=== PATIENT | male | born 1950 | race Caucasian/White ===

== ENCOUNTER 2019-03-18 18:01 | Emergency (ER) | payer MEDICARE ==
[~2019-03-18] VITALS: Ht 167.6 cm; Wt 74.8 kg
[2019-03-18 18:04] VITALS: Ht 167.6 cm; Wt 74.8 kg
[2019-03-18 20:20] VITALS: BP 121/67
== END 2019-03-18 20:20 | disposition home or self-care (01) ==
LOC: ED 18:01
DX: S51.812A Laceration without foreign body of left forearm, initial encounter (principal); S61.012A Laceration without foreign body of left thumb without damage to nail, initial encounter; W26.8XXA Contact with other sharp object(s), not elsewhere classified, initial encounter; Y93.89 Activity, other specified; Y92.89 Other specified places as the place of occurrence of the external cause; Y99.8 Other external cause status
CPT/HCPCS: 90715; J0690; J1885; J2001; J2405; J3010